=== PATIENT | female | born 1955 | race Caucasian/White ===

== ENCOUNTER 2023-07-26 07:20 | Day surgery (SDC) | payer OTHER ==
[~2023-07-26] VITALS: Ht 157.5 cm; Wt 76.4 kg
[~2023-07-26 07:20] MED LIST: HYDROCHLOROTHIA25 MG PO; IBLOOD GLUCOSE TEST STRIP 1 EA TEST VI PRN; LACTATED RINGER'S 1,000 ML IV SCH; LIDOCAINE HCL 1% 5 ML SDV INJ ONE; LISINOPRIL10 MG PO; MIDAZOLAM HCL 5 MG/5 ML VIAL IV PRN; fentaNYL citrate 100 MCG/2 ML VIAL IV PRN
[2023-07-26 07:43] VITALS: BP 113/77
[2023-07-26] MEDS ORDERED: fentaNYL citrate 100 MCG/2 ML VIAL ONE (08:30)
[2023-07-26] MEDS ORDERED: MIDAZOLAM HCL 5 MG/5 ML VIAL ONE (08:30)
[2023-07-26 10:20] VITALS: BP 107/63
--- NOTE | 2023-07-26 10:43 | NUR ---
07/26/23 1043 Rachelle Junior 1370 PT ARRIVED IN PACU SLEEPY. ABD SOFT. 0940 DR AT BEDSIDE. ALL QUESTIONS ANSWERED. 1000 RESTING. REU. 1015 SITTING UP IN BED SIPPING ON WATER. 1025 DC INSTRUCTIONS GIVEN. 1030 LEFT VIA W/C.
--- NOTE | 2023-07-30 15:28 | OR ---
[facility] [address] [place], [place] [address] Signed DATE OF OPERATION: 07/26/2023 SURGEON: Denilson Ballesteros MD PREOPERATIVE DIAGNOSIS: Colon screening. POSTOPERATIVE DIAGNOSIS: Polyps x2 and diverticula. PROCEDURE: Total colonoscopy to cecum with cold snare polypectomy x1 and cold morcellation polypectomy x1. ANESTHESIA: Intravenous sedation; fentanyl 100 mcg, Versed 6 mg. INDICATION: A 67-year-old white woman is a patient Dr. Rohan Pool. She has never had colonoscopy in the past. She is admitted at this time to undergo colonoscopy. She understands the risk of bleeding, infection, and perforation. She does have a distant history of Cologuard screening in the past, which was said to be negative. FINDINGS: The prep was quite good. Complete colonoscopy was undertaken of the cecum with full intubation of the cecum. There was a sessile polyp about 1 cm in size in the proximal ascending colon which was excised with cold snare technique and another small polyp at the rectosigmoid which was excised with cold morcellation technique. Scattered diverticula are noted in the sigmoid and left colon. There were no other findings of concern. DESCRIPTION OF PROCEDURE: The patient was brought to the endoscopy suite and placed in lateral decubitus position, given intravenous sedation to the point of slurred speech and nystagmus. Digital rectal examination was normal. An Olympus video colonoscope was passed in the rectum and manipulated throughout the colon noting a few diverticula of the sigmoid colon. Scope was ultimately advanced to the cecum. The ileocecal valve and appendiceal orifice were normal. Upon withdrawal, a small sessile 1 cm polyp was noted, this was excised with cold snare technique. A [place] Electronically Signed By: DENILSON BALLESTEROS MD 07/30/23 1528 PATIENT NAME: ALEX NEVAREZ OPERATIVE REPORT DATE OF : 53 REPORT #: [id number] PHYSICIAN: DENILSON BALLESTEROS MD PCP: KIRSTEN POOL MD REPORT IS CONFIDENTIAL AND NOT TO BE RELEASED WITHOUT AUTHORIZATION [facility] [address] [place], [place] [address] Signed net was used to withdraw the polyp as it would not pass through the operating channel of the scope. The scope was withdrawn and examination throughout showed no sign of abnormality other than diverticula until the rectosigmoid, where another small polyp was noted, this was excised with cold morcellation technique. Further withdrawal allowed for retroflexed view of the rectum, which was normal. Scope was removed and the patient was taken to recovery room in good condition. CONCLUDING DIAGNOSIS: Polyps x2, both excised. PLAN: Recommend repeat colonoscopy in 3 to 5 years, sooner if clinically indicated. Recommend a high-fiber diet as well. MD TRISTA Foley/EVONL /[id number] cc: Kirsten Pool MD Copies: ~ Electronically Signed By: DENILSON BALLESTEROS MD 07/30/23 1528 PATIENT NAME: ALEX NEVAREZ OPERATIVE REPORT DATE OF : 53 REPORT #: [id number] PHYSICIAN: DENILSON BALLESTEROS MD PCP: KIRSTEN POOL MD REPORT IS CONFIDENTIAL AND NOT TO BE RELEASED WITHOUT AUTHORIZATION
--- NOTE | 2023-07-30 16:00 | PATH ---
[facility] [address] [facility] [place] [place] [address] Signed SPECIMEN(S): A PROXIMAL ASCENDING/RIGHT COLON POLYP SPECIMEN(S): B SIGMOID POLYP SPECIMEN SOURCE: A. PROXIMAL ASCENDING/RIGHT COLON POLYP B. SIGMOID POLYP CLINICAL HISTORY: Screening colonoscopy. Diverticulosis FINAL PATHOLOGIC DIAGNOSIS: A. Proximal, ascending, and right colon polyps: - Tubular adenomas and sessile serrated adenoma. - Negative for high-grade dysplasia or malignancy. B. Sigmoid colon polyp: - Polypoid fragment of benign colonic mucosa. - No colitis or neoplasm identified. [facility] MICROSCOPIC EXAMINATION: Histologic sections of all submitted blocks are examined by light microscopy. These findings, together with the gross examination, support the pathologic diagnosis. GROSS DESCRIPTION: A. The specimen, labeled and designated "[place], designated as per requisition, proximal ascending/right colon polyp," is received in formalin and consists of three fragments of soft [place] tissue that are up to 0.6 cm in greatest dimension. Entirely submitted in (A1). B. The specimen, labeled and designated "[place], designated as per requisition, sigmoid colon polyp," is received in formalin and consists of two fragments of soft [place]itting[place] tissue that are up to 0.6 cm in greatest dimension. Entirely submitted in (B1). TW (under the direct supervision of a pathologist) The Gross Description was prepared using a voice recognition system. The report was reviewed for accuracy; however, sound-alike word errors, addition and/or deletions may occur. If there is any question about this report, please contact Client Services. ADDITIONAL NOTES: Immunohistochemical and/or in situ hybridization studies if performed in this PATIENT NAME: ALEX NEVAREZ PATHOLOGY DATE OF : 53 REPORT #: [id number] PHYSICIAN: VISHAL GRIFFIN PCP: GERTRUDE CHAIDEZ MD REPORT IS CONFIDENTIAL AND NOT TO BE RELEASED WITHOUT AUTHORIZATION [facility] [address] [place], [place] [address] Signed case included appropriate positive controls that reacted as expected. This test was developed and its performance characteristics determined by [facility]. It has not been cleared or approved by the U.S. Food and Drug Administration. The FDA has determined that such clearance or approval is not necessary. This test is used for clinical purposes. It should not be regarded as investigational or for research. [facility] is certified under the Clinical Laboratory Improvement Amendments of 1988 (CLIA) as qualified to perform high complexity clinical laboratory testing. PERFORMING LABORATORY: Technical component was performed by [facility], [address] [place] [id number] (CLIA# [id number]). Professional interpretation was performed by [facility], [address] [place] [id number] (CLIA#: [id number]). Diagnostician: Ajay Jones MD Pathologist Electronically Signed 07/30/2023 Copies: ~ PATIENT NAME: ALEX NEVAREZ PATHOLOGY DATE OF : 53 REPORT #: [id number] PHYSICIAN: VISHAL GRIFFIN PCP: GERTRUDE CHAIDEZ MD REPORT IS CONFIDENTIAL AND NOT TO BE RELEASED WITHOUT AUTHORIZATION
== END 2023-07-26 10:20 | disposition home or self-care (01) ==
LOC: DS 07:20 → OPS 07:20 → DS 08:30 → OPS 10:20
PROVIDERS: ATTEND Surgery
PROC: 0DBN8ZZ Excision of Sigmoid Colon, Via Natural or Artificial Opening Endoscopic (ICD-10-PCS; 2023-07-26)
PROC: 0DBK8ZX Excision of Ascending Colon, Via Natural or Artificial Opening Endoscopic, Diagnostic (ICD-10-PCS; principal; 2023-07-26 08:30)
DX: Z12.11 Encounter for screening for malignant neoplasm of colon (principal); D12.2 Benign neoplasm of ascending colon; K63.5 Polyp of colon; K57.30 Diverticulosis of large intestine without perforation or abscess without bleeding; I10 Essential (primary) hypertension; Z78.0 Asymptomatic menopausal state; Z79.899 Other long term (current) drug therapy
CPT/HCPCS: 99153; G0500; J2250; J3010; J7121

== ENCOUNTER 2024-08-07 12:01 | Day surgery (SDC) | payer OTHER ==
[~2024-08-07] VITALS: Ht 157.5 cm; Wt 78.2 kg
[~2024-08-07 12:01] MED LIST changes: +ALENDRONATE SOD70 MG PO; +SPIRONOLACTONE25 MG PO; +TRIAMCINOLONE A15 G1 TOP
[2024-08-07 12:29] VITALS: BP 108/74
[2024-08-07] MEDS ORDERED: FOSAMAX70 MG PO (12:33)
[2024-08-07] MEDS ORDERED: MIDAZOLAM HCL 5 MG/5 ML VIAL ONE (12:43)
[2024-08-07] MEDS ORDERED: fentaNYL citrate 100 MCG/2 ML VIAL ONE (12:43)
--- NOTE | 2024-08-07 12:50 | NUR ---
S O AT BS AND WAITING.
--- NOTE | 2024-08-07 14:35 | NUR ---
08/07/24 1435 Rachelle Junior 1401 PT ARRIVED IN PACU SLEEPY. ABD SOFT AND PASSING FLATUS. 1415 DR AT BEDSIDE. ALL QUESTIONS ANSWERED. 1430 RESTING. REU.
[2024-08-07 14:39] VITALS: BP 89/59
--- NOTE | 2024-08-07 17:31 | OR ---
[facility] [address] [place], [place] [address] Signed DATE OF OPERATION: 08/07/2024 SURGEON: Denilson Ballesteros MD PREOPERATIVE DIAGNOSES: History of serrated adenoma, July 2023 as well as tubular adenomas. POSTOPERATIVE DIAGNOSES: Sigmoid diverticulosis, no evidence of recurrent or new polyps. PROCEDURE: Total colonoscopy to cecum. ANESTHESIA: Intravenous sedation, fentanyl 100 mcg, and Versed 5 mg. INDICATION: This 68-year-old white woman is a patient of Dr. Pool and underwent colonoscopy by me more than a year ago where she was found to have a serrated adenoma as well as tubular adenoma. The serrated adenoma was in the proximal ascending colon. A short-term repeat colonoscopy was recommended on the basis of the serrated adenoma histology as it has a much higher propensity for malignant degeneration on a short time frame. She currently has no symptoms of bleeding, diarrhea, or constipation and no family history of colon cancer. She understands the risk of colonoscopy including, but not limited to bleeding, infection, and perforation, and wished to proceed. FINDINGS: The prep was excellent. Complete colonoscopy was undertaken to the cecum without question. She had diverticula of the sigmoid. The remaining colon was normal. DESCRIPTION OF PROCEDURE: The patient was brought to the endoscopy suite and placed in lateral decubitus position, given intravenous sedation to the point of slurred speech and nystagmus. Digital rectal examination was normal. An Olympus video colonoscope was passed in the rectum and manipulated throughout the colon ultimately intubating the cecum itself. The ileocecal valve and appendiceal orifice were normal. The scope was then withdrawn and examination throughout showed no sign of abnormality, only diverticula of the sigmoid and not too many at that. Retroflexed view of the rectum was normal. Scope was removed. The patient was taken to Electronically Signed By: DENILSON BALLESTEROS MD 08/07/24 1731 PATIENT NAME: ALEX NEVAREZ OPERATIVE REPORT DATE OF : 53 REPORT #: [id number] PHYSICIAN: DENILSON BALLESTEROS MD PCP: GERTRUDE POOL MD REPORT IS CONFIDENTIAL AND NOT TO BE RELEASED WITHOUT AUTHORIZATION [facility] [address] [place], [place] [address] Signed the recovery room in good condition. CONCLUDING DIAGNOSIS: Diverticulosis, no evidence of polyps. PLAN: Recommend repeat colonoscopy in 10 years per clinical guidance currently. Sooner if symptoms should develop. Recommend also high-fiber diet. She will return to the ongoing care of Dr. Pool. MD TRISTA Foley/MODL /[id number] cc: Dr. Pool Copies: ~ Electronically Signed By: DENILSON BALLESTEROS MD 08/07/24 1731 PATIENT NAME: ALEX NEVAREZ OPERATIVE REPORT DATE OF : 53 REPORT #: [id number] PHYSICIAN: DENILSON BALLESTEROS MD PCP: GERTRUDE POOL MD REPORT IS CONFIDENTIAL AND NOT TO BE RELEASED WITHOUT AUTHORIZATION
== END 2024-08-07 14:47 | disposition home or self-care (01) ==
LOC: OPS 12:01 → DS 12:08 → OPS 13:00 → DS 13:00 → OPS 14:47
PROVIDERS: ATTEND Surgery
PROC: 0DJD8ZZ Inspection of Lower Intestinal Tract, Via Natural or Artificial Opening Endoscopic (ICD-10-PCS; principal; 2024-08-07 13:00)
DX: K57.30 Diverticulosis of large intestine without perforation or abscess without bleeding (principal); I10 Essential (primary) hypertension; Z78.0 Asymptomatic menopausal state; Z86.0101 Personal history of adenomatous and serrated colon polyps
CPT/HCPCS: 99153; G0500; J2250; J3010; J7121